=== PATIENT | female | born 1970 | race Caucasian/White ===

== ENCOUNTER 2021-04-29 12:12 | Emergency (ER) | payer MEDICAID ==
[~2021-04-29] VITALS: Ht 167.6 cm; Wt 77.3 kg
[2021-04-29 13:21] VITALS: BP 111/81
== END 2021-04-29 14:47 | disposition home or self-care (01) ==
LOC: EMS 12:12
DX: F41.9 Anxiety disorder, unspecified (principal); Z88.0 Allergy status to penicillin
CPT/HCPCS: 93005; 99283

== ENCOUNTER → 2021-11-09 | Outpatient (CLI) | payer OTHER | END | disposition home or self-care (01) | LOC: RADMN 08:34 | PROVIDERS: ATTEND Family Medicine | DX: M47.816 Spondylosis without myelopathy or radiculopathy, lumbar region (principal); M51.36 Other intervertebral disc degeneration, lumbar region; M54.50 Low back pain, unspecified | CPT/HCPCS: 72100 ==

== ENCOUNTER → 2022-05-04 | Outpatient (CLI) | payer OTHER | END | disposition home or self-care (01) | LOC: RADPV 10:22 | PROVIDERS: ATTEND Family Medicine | DX: R60.0 Localized edema (principal); M25.579 Pain in unspecified ankle and joints of unspecified foot | CPT/HCPCS: 76881 ==